=== PATIENT | female | born 1945 | race Caucasian/White ===

== ENCOUNTER → 2017-10-02 | Day surgery (SDC) | payer MEDICARE ==
[~2017-10-02] VITALS: Ht 167.6 cm; Wt 97.3 kg
[2017-10-02] VITALS (22 sets, daily range): BP systolic 88–153; BP diastolic 48–85; PULSE 68–100; TEMP 98.2–99.3
[~2017-10-02] MED LIST: BACTRIM DS 8001 TAB PO; FOLIC ACID; GLUCOSE TEST ST1 DEV MC; IBUPROFEN800 MG PO; IRON; LEVEMIR SQ; LEVEMIR100 U/ML SQ; NORCO 325 MG-51 TAB PO; TYLENOL 500MG500 MG PO; VITAMIN C1 TAB PO
== END ==
LOC: SDCO 05:51 → EDSTATUS 08:00 → SDCO 08:00 → COL.RAD 08:00
DX: C50.211 Malignant neoplasm of upper-inner quadrant of right female breast (principal); C78.7 Secondary malignant neoplasm of liver and intrahepatic bile duct; Z17.1 Estrogen receptor negative status [ER-]; E11.9 Type 2 diabetes mellitus without complications; Z78.0 Asymptomatic menopausal state; Z80.8 Family history of malignant neoplasm of other organs or systems; Z80.0 Family history of malignant neoplasm of digestive organs; Z80.49 Family history of malignant neoplasm of other genital organs; Z96.653 Presence of artificial knee joint, bilateral
CPT/HCPCS: C1788; J0690; J1644; J2405; J2704; J3010; J7030

== ENCOUNTER 2018-01-09 08:28 | Day surgery (SDC) | payer MEDICARE, OTHER ==
[2018-01-09] VITALS (7 sets, daily range): BP systolic 92–131; BP diastolic 44–67; PULSE 56–78; TEMP 97.1–98
[~2018-01-09] VITALS: Ht 167.6 cm; Wt 101.0 kg
[2018-01-09] MEDS ORDERED: ZESTRIL30 MG PO (08:51)
[2018-01-09] MEDS ORDERED: LEVEMIR FLEX100 U/ML SQ (08:52)
[2018-01-09] MEDS ORDERED: NORCO 325 MG-51 TAB PO (12:17)
[2018-01-09 14:15] LABS: HEMATOCRIT 40.7 % (37.0-47.0); HEMOGLOBIN 12.8 g/dl (12.5-16.0); MEAN CELL VOLUME 96 fl (80.0-100.0); MEAN CORPUSCULAR HEMOGLOBIN 30 pg (27.0-31.0); MEAN CORPUSCULAR HGB CONC 31 g/dl (33.0-37.0); MEAN PLATELET VOLUME 11.7 fl (7.4-10.4); PLATELET COUNT 336 K/mm3 (130-400); RED BLOOD COUNT 4.26 M/mm3 (4.10-5.30); REDCELL DISTRIBUTION WIDTH-CV 17.3 % (11.5-14.5)
[2018-01-09 14:24] LABS: BILIRUBIN,TOTAL 0.7 mg/dL (0.0-1.0); CALCIUM 9.3 mg/dL (8.4-10.2); CREATININE, serum 0.78 mg/dL (0.52-1.25); POTASSIUM 4.2 mmol/L (3.4-5.0); TOTAL PROTEIN 8.1 gm/dL (6.4-8.2)
[2018-01-09 14:41] LABS: BAND 2 % (0-10); LYMPHOCYTE 32 % (20.0-51.0); NEUTROPHILS 65 % (42.0-75.2)
[2018-01-09 14:42] LABS: PLATELET ESTIMATE NORMAL (NORMAL)
== END 2018-01-09 14:25 | disposition home or self-care (01) ==
LOC: SDCO 08:28
PROVIDERS: Internal Medicine
DX: C50.911 Malignant neoplasm of unspecified site of right female breast (principal); C78.7 Secondary malignant neoplasm of liver and intrahepatic bile duct; M13.849 Other specified arthritis, unspecified hand; I10 Essential (primary) hypertension; E11.42 Type 2 diabetes mellitus with diabetic polyneuropathy; Z96.653 Presence of artificial knee joint, bilateral; Z79.4 Long term (current) use of insulin; Z88.0 Allergy status to penicillin; Z87.891 Personal history of nicotine dependence; Z85.828 Personal history of other malignant neoplasm of skin; Z82.49 Family history of ischemic heart disease and other diseases of the circulatory system
CPT/HCPCS: C1788; J0690; J1644; J2704; J3010; J7030

== ENCOUNTER → 2018-02-15 | Outpatient (CLI) | payer MEDICARE, OTHER ==
[~2018-02-15] MED LIST changes: +LEVEMIR FLEX100 U/ML SQ; +ZESTRIL30 MG PO
== END ==
LOC: ZCOL.LAB 16:03
DX: T80.212A Local infection due to central venous catheter, initial encounter (principal)

== ENCOUNTER 2018-02-19 14:10 | Inpatient (IN) | payer MEDICARE, OTHER ==
[~2018-02-19] VITALS: Ht 165.1 cm; Wt 102.9 kg
[2018-02-19 15:05] LABS: MEAN CELL VOLUME 89 fl (80.0-100.0); MEAN CORPUSCULAR HGB CONC 34 g/dl (33.0-37.0); PLATELET COUNT 419 K/mm3 (130-400); RED BLOOD COUNT 3.91 M/mm3 (4.10-5.30)
[2018-02-19 15:09] LABS: HEMATOCRIT 34.9 % (37.0-47.0); HEMOGLOBIN 11.9 g/dl (12.5-16.0); MEAN CORPUSCULAR HEMOGLOBIN 30 pg (27.0-31.0)
[2018-02-19 15:27] LABS: ALBUMIN 3.5 gm/dL (3.5-5.0); BILIRUBIN,TOTAL 1.1 mg/dL (0.0-1.0); CALCIUM 9.4 mg/dL (8.4-10.2); CREATININE, serum 0.89 mg/dL (0.52-1.25); LYMPHOCYTE 7 % (20.0-51.0); NEUTROPHILS 81 % (42.0-75.2); PLATELET ESTIMATE NORMAL (NORMAL); POTASSIUM 3.4 mmol/L (3.4-5.0); TOTAL PROTEIN 8.4 gm/dL (6.4-8.2)
[2018-02-19 15:28] LABS: ANISOCYTOSIS 2+; MICROCYTOSIS 1+
[2018-02-19 15:29] LABS: POLYCHROMASIA 1+
[2018-02-19 17:02] VITALS: BP 139/68; PULSE 95; TEMP 102.5
[2018-02-19 20:49] VITALS: BP 99/46; PULSE 82; TEMP 97.7
[2018-02-20] VITALS (7 sets, daily range): BP systolic 100–138; BP diastolic 41–73; PULSE 68–86; TEMP 98.1–99.3
[2018-02-20 07:01] LABS: BASO # 0.1 (0.0-0.2); BASO % 0.5 % (0.0-2.0); BILIRUBIN,TOTAL 0.8 mg/dL (0.0-1.0); CALCIUM 8.6 mg/dL (8.4-10.2); CREATININE, serum 0.85 mg/dL (0.52-1.25); EOS % 0.1 % (0-4.0); GRAN # 19.5 (1.4-6.5); GRAN % 74.4 % (42.2-75.2); LYMPH # 2.3 (1.2-3.4); LYMPH % 8.7 % (20.0-51.0); MAGNESIUM 2.1 mg/dL (1.6-2.3); MEAN CELL VOLUME 93 fl (80.0-100.0); MEAN CORPUSCULAR HGB CONC 33 g/dl (33.0-37.0); MEAN PLATELET VOLUME 11.2 fl (7.4-10.4); MONO # 3.2 (0.1-0.6); MONO % 12.3 % (1.7-9.3); PLATELET COUNT 371 K/mm3 (130-400); POTASSIUM 3.3 mmol/L (3.4-5.0); RED BLOOD COUNT 3.54 M/mm3 (4.10-5.30); REDCELL DISTRIBUTION WIDTH-CV 17.1 % (11.5-14.5); TOTAL PROTEIN 7.1 gm/dL (6.4-8.2)
[2018-02-20 07:16] LABS: HEMATOCRIT 32.9 % (37.0-47.0); HEMOGLOBIN 10.7 g/dl (12.5-16.0); MEAN CORPUSCULAR HEMOGLOBIN 30 pg (27.0-31.0)
[2018-02-21 03:35] LABS: MEAN CELL VOLUME 91 fl (80.0-100.0); MEAN CORPUSCULAR HGB CONC 33 g/dl (33.0-37.0); MEAN PLATELET VOLUME 10.9 fl (7.4-10.4); PLATELET COUNT 322 K/mm3 (130-400); RED BLOOD COUNT 3.64 M/mm3 (4.10-5.30)
[2018-02-21 03:38] LABS: HEMATOCRIT 33.1 % (37.0-47.0); HEMOGLOBIN 10.8 g/dl (12.5-16.0); MEAN CORPUSCULAR HEMOGLOBIN 30 pg (27.0-31.0)
[2018-02-21 03:44] VITALS: BP 121/62; PULSE 80; TEMP 98.8
[2018-02-21 03:48] LABS: CALCIUM 8.8 mg/dL (8.4-10.2); CREATININE, serum 0.72 mg/dL (0.52-1.25); POTASSIUM 4.3 mmol/L (3.4-5.0)
[2018-02-21 03:49] LABS: ANISOCYTOSIS 1+; BAND 11 % (0-10); LYMPHOCYTE 7 % (20.0-51.0); MAGNESIUM 2.3 mg/dL (1.6-2.3); METAMYELOCYTE 3 % (0-0); NEUTROPHILS 64 % (42.0-75.2); PLATELET ESTIMATE NORMAL (NORMAL)
[2018-02-21 07:35] VITALS: BP 113/61; PULSE 78; TEMP 98.3
[2018-02-21 12:31] VITALS: BP 125/64; PULSE 72; TEMP 97.7
[2018-02-21 16:35] VITALS: BP 115/48; PULSE 77; TEMP 98.9
[2018-02-21 20:39] VITALS: BP 122/56; PULSE 81; TEMP 99.7
[2018-02-22] VITALS (8 sets, daily range): BP systolic 114–140; BP diastolic 53–73; PULSE 67–92; TEMP 97.7–98.6
[2018-02-22 07:03] LABS: MEAN CELL VOLUME 94 fl (80.0-100.0); MEAN CORPUSCULAR HGB CONC 32 g/dl (33.0-37.0); MEAN PLATELET VOLUME 11.5 fl (7.4-10.4); PLATELET COUNT 297 K/mm3 (130-400); RED BLOOD COUNT 3.55 M/mm3 (4.10-5.30); REDCELL DISTRIBUTION WIDTH-CV 17.2 % (11.5-14.5)
[2018-02-22 07:12] LABS: CREATININE, serum 0.61 mg/dL (0.52-1.25); POTASSIUM 3.6 mmol/L (3.4-5.0)
[2018-02-22 07:13] LABS: HEMATOCRIT 33.5 % (37.0-47.0); HEMOGLOBIN 10.6 g/dl (12.5-16.0); MEAN CORPUSCULAR HEMOGLOBIN 30 pg (27.0-31.0)
[2018-02-22 08:59] LABS: ANISOCYTOSIS 1+; BAND 5 % (0-10); LYMPHOCYTE 16 % (20.0-51.0); NEUTROPHILS 77 % (42.0-75.2)
[2018-02-22 09:00] LABS: PLATELET ESTIMATE NORMAL (NORMAL)
[2018-02-23 03:51] VITALS: BP 132/57; PULSE 70; TEMP 98
[2018-02-23 07:18] LABS: MEAN CELL VOLUME 92 fl (80.0-100.0); MEAN CORPUSCULAR HGB CONC 33 g/dl (33.0-37.0); MEAN PLATELET VOLUME 11.4 fl (7.4-10.4); PLATELET COUNT 284 K/mm3 (130-400); RED BLOOD COUNT 3.74 M/mm3 (4.10-5.30); REDCELL DISTRIBUTION WIDTH-CV 17.4 % (11.5-14.5)
[2018-02-23 07:22] LABS: HEMATOCRIT 34.5 % (37.0-47.0); HEMOGLOBIN 11.2 g/dl (12.5-16.0); MEAN CORPUSCULAR HEMOGLOBIN 30 pg (27.0-31.0)
[2018-02-23 07:23] LABS: ALBUMIN 3.1 gm/dL (3.5-5.0); BILIRUBIN,TOTAL 0.7 mg/dL (0.0-1.0); CALCIUM 9.4 mg/dL (8.4-10.2); CREATININE, serum 0.67 mg/dL (0.52-1.25); POTASSIUM 3.4 mmol/L (3.4-5.0); TOTAL PROTEIN 7.6 gm/dL (6.4-8.2)
[2018-02-23 09:19] LABS: ANISOCYTOSIS 1+; BAND 6 % (0-10); HYPOCHROMIA 1+; LYMPHOCYTE 20 % (20.0-51.0); NEUTROPHILS 65 % (42.0-75.2); PLATELET ESTIMATE NORMAL (NORMAL)
[2018-02-23 09:20] LABS: STOMATOCYTE 1+
[2018-02-23 09:53] VITALS: BP 143/56; PULSE 74; TEMP 97.8
[2018-02-23 12:22] VITALS: BP 148/71; PULSE 78; TEMP 97.7
[2018-02-23 15:52] VITALS: BP 151/78; PULSE 84; TEMP 97.3
[2018-02-23 20:06] VITALS: BP 119/58; PULSE 94
[2018-02-24] VITALS (7 sets, daily range): BP systolic 100–135; BP diastolic 48–68; PULSE 77–94; TEMP 97.1–98.9
[2018-02-24 07:45] LABS: MEAN CELL VOLUME 92 fl (80.0-100.0); MEAN CORPUSCULAR HGB CONC 33 g/dl (33.0-37.0); MEAN PLATELET VOLUME 11.4 fl (7.4-10.4); PLATELET COUNT 306 K/mm3 (130-400); RED BLOOD COUNT 3.76 M/mm3 (4.10-5.30); REDCELL DISTRIBUTION WIDTH-CV 17.9 % (11.5-14.5)
[2018-02-24 07:51] LABS: CALCIUM 9.4 mg/dL (8.4-10.2); CREATININE, serum 0.66 mg/dL (0.52-1.25); POTASSIUM 3.9 mmol/L (3.4-5.0)
[2018-02-24 08:07] LABS: HEMATOCRIT 34.5 % (37.0-47.0); HEMOGLOBIN 11.2 g/dl (12.5-16.0); MEAN CORPUSCULAR HEMOGLOBIN 30 pg (27.0-31.0)
[2018-02-24 08:57] LABS: ANISOCYTOSIS 1+; BAND 10 % (0-10); HYPOCHROMIA 1+; LYMPHOCYTE 13 % (20.0-51.0); METAMYELOCYTE 1 % (0-0); NEUTROPHILS 68 % (42.0-75.2); PLATELET ESTIMATE NORMAL (NORMAL)
[2018-02-25 03:56] VITALS: BP 106/69; PULSE 85; TEMP 99.1
[2018-02-25 06:58] LABS: MEAN CELL VOLUME 94 fl (80.0-100.0); MEAN CORPUSCULAR HGB CONC 33 g/dl (33.0-37.0); MEAN PLATELET VOLUME 11.5 fl (7.4-10.4); PLATELET COUNT 303 K/mm3 (130-400)
[2018-02-25 06:59] LABS: HEMATOCRIT 32.9 % (37.0-47.0); HEMOGLOBIN 10.7 g/dl (12.5-16.0); MEAN CORPUSCULAR HEMOGLOBIN 31 pg (27.0-31.0)
[2018-02-25 07:10] LABS: CALCIUM 9.4 mg/dL (8.4-10.2); CREATININE, serum 0.62 mg/dL (0.52-1.25); POTASSIUM 3.3 mmol/L (3.4-5.0)
[2018-02-25 07:25] VITALS: BP 120/58; PULSE 87; TEMP 98.6
[2018-02-25 12:05] VITALS: BP 123/49; PULSE 89; TEMP 98.1
[2018-02-25 15:45] VITALS: BP 138/68; PULSE 92; TEMP 99.2
[2018-02-25 16:42] LABS: COLLECTION METHOD CLEAN CATCH
[2018-02-25 16:47] LABS: PH 6 (5-8); URINE APPEARANCE Clear; URINE BACTERIA None Seen /hpf; URINE BILIRUBIN Negative (NEGATIVE); URINE BLOOD Negative (NEGATIVE); URINE COLOR Yellow; URINE GLUCOSE 1+ (NEGATIVE); URINE KETONE Negative (NEGATIVE); URINE LEUKOCYTE ESTERASE Negative (NEGATIVE); URINE NITRATE Negative (NEGATIVE); URINE PROTEIN(semi-quant) 1+ (NEGATIVE); URINE RBC 0-2 /hpf; URINE UROBILINOGEN Negative (NEGATIVE); URINE WBC 0-2 /hpf
[2018-02-25 19:47] VITALS: BP 126/103; PULSE 113; TEMP 99.3
[2018-02-25 23:38] VITALS: BP 136/60; PULSE 95; TEMP 98.5
[2018-02-26] VITALS (8 sets, daily range): BP systolic 108–134; BP diastolic 45–77; PULSE 87–105; TEMP 97.5–102.1
[2018-02-26 06:09] LABS: BASO # 0.1 (0.0-0.2); BASO % 0.3 % (0.0-2.0); GRAN # 31.1 (1.4-6.5); GRAN % 79.2 % (42.2-75.2); LYMPH # 2.2 (1.2-3.4); LYMPH % 5.6 % (20.0-51.0); MEAN CELL VOLUME 90 fl (80.0-100.0); MEAN CORPUSCULAR HGB CONC 33 g/dl (33.0-37.0); MEAN PLATELET VOLUME 11.3 fl (7.4-10.4); MONO # 4.3 (0.1-0.6); MONO % 10.9 % (1.7-9.3); PLATELET COUNT 302 K/mm3 (130-400); RED BLOOD COUNT 3.62 M/mm3 (4.10-5.30); REDCELL DISTRIBUTION WIDTH-CV 17.9 % (11.5-14.5)
[2018-02-26 06:13] LABS: CALCIUM 9.5 mg/dL (8.4-10.2); CREATININE, serum 0.65 mg/dL (0.52-1.25); POTASSIUM 3.4 mmol/L (3.4-5.0)
[2018-02-26 06:27] LABS: HEMATOCRIT 32.5 % (37.0-47.0); HEMOGLOBIN 10.8 g/dl (12.5-16.0); MEAN CORPUSCULAR HEMOGLOBIN 30 pg (27.0-31.0)
[2018-02-26 09:13] LABS: BAND 1 % (0-10); LYMPHOCYTE 5 % (20.0-51.0); NEUTROPHILS 89 % (42.0-75.2)
[2018-02-26 09:14] LABS: ANISOCYTOSIS 1+; HYPOCHROMIA 1+; PLATELET ESTIMATE NORMAL (NORMAL)
[2018-02-27 04:04] VITALS: BP 117/61; PULSE 81
[2018-02-27 06:06] LABS: MEAN CELL VOLUME 93 fl (80.0-100.0); MEAN CORPUSCULAR HGB CONC 32 g/dl (33.0-37.0); MEAN PLATELET VOLUME 11.2 fl (7.4-10.4); PLATELET COUNT 299 K/mm3 (130-400); REDCELL DISTRIBUTION WIDTH-CV 18.5 % (11.5-14.5)
[2018-02-27 06:09] LABS: HEMATOCRIT 32.7 % (37.0-47.0); HEMOGLOBIN 10.5 g/dl (12.5-16.0); MEAN CORPUSCULAR HEMOGLOBIN 30 pg (27.0-31.0)
[2018-02-27 06:20] LABS: BILIRUBIN,TOTAL 3.5 mg/dL (0.0-1.0); CALCIUM 9.3 mg/dL (8.4-10.2); CREATININE, serum 0.76 mg/dL (0.52-1.25); POTASSIUM 3.6 mmol/L (3.4-5.0); TOTAL PROTEIN 7.6 gm/dL (6.4-8.2)
[2018-02-27 06:51] LABS: BAND 4 % (0-10); LYMPHOCYTE 9 % (20.0-51.0); NEUTROPHILS 83 % (42.0-75.2); PLATELET ESTIMATE NORMAL (NORMAL)
[2018-02-27 08:27] VITALS: BP 136/61; PULSE 90; TEMP 98.3
[2018-02-27 11:42] VITALS: BP 118/54; PULSE 89; TEMP 98.9
[2018-02-27 15:49] VITALS: BP 135/61; PULSE 87; TEMP 97.8
[2018-02-27 20:03] VITALS: BP 121/59; PULSE 91; TEMP 98.8
[2018-02-27 23:46] VITALS: BP 122/60; PULSE 86; TEMP 97.8
[2018-02-28] VITALS (16 sets, daily range): BP systolic 100–153; BP diastolic 53–88; PULSE 71–84; TEMP 97.7–98.7
[2018-02-28 06:23] LABS: MEAN CELL VOLUME 92 fl (80.0-100.0); MEAN CORPUSCULAR HGB CONC 32 g/dl (33.0-37.0); MEAN PLATELET VOLUME 11.5 fl (7.4-10.4); PLATELET COUNT 300 K/mm3 (130-400); RED BLOOD COUNT 3.22 M/mm3 (4.10-5.30); REDCELL DISTRIBUTION WIDTH-CV 18.3 % (11.5-14.5)
[2018-02-28 06:29] LABS: HEMATOCRIT 29.6 % (37.0-47.0); HEMOGLOBIN 9.6 g/dl (12.5-16.0); MEAN CORPUSCULAR HEMOGLOBIN 30 pg (27.0-31.0)
[2018-02-28 06:33] LABS: CALCIUM 9.1 mg/dL (8.4-10.2); CREATININE, serum 0.73 mg/dL (0.52-1.25); POTASSIUM 3.5 mmol/L (3.4-5.0)
[2018-02-28 07:04] LABS: BAND 4 % (0-10); LYMPHOCYTE 11 % (20.0-51.0); METAMYELOCYTE 2 % (0-0); NEUTROPHILS 77 % (42.0-75.2); PLATELET ESTIMATE NORMAL (NORMAL)
[2018-02-28 07:52] LABS: POLYCHROMASIA 1+
[2018-02-28 08:38] LABS: TARGET CELLS 1+
[2018-02-28 08:39] LABS: ANISOCYTOSIS 1+
== END 2018-02-28 15:50 | disposition short-term general hospital (02) | DRG 314 ==
LOC: COL.ER 14:10 → MEDICAL 15:36
PROVIDERS: Family Medicine; Internal Medicine; Internal Medicine Infectious Disease; Nurse Practitioner Family; Physician Assistant
DX: T80.211A Bloodstream infection due to central venous catheter, initial encounter (principal); A41.01 Sepsis due to Methicillin susceptible Staphylococcus aureus; I33.0 Acute and subacute infective endocarditis; E87.1 Hypo-osmolality and hyponatremia; C78.7 Secondary malignant neoplasm of liver and intrahepatic bile duct; L03.313 Cellulitis of chest wall; I12.9 Hypertensive chronic kidney disease with stage 1 through stage 4 chronic kidney disease, or unspecified chronic kidney disease; N18.2 Chronic kidney disease, stage 2 (mild); C50.811 Malignant neoplasm of overlapping sites of right female breast; E11.22 Type 2 diabetes mellitus with diabetic chronic kidney disease; E66.01 Morbid (severe) obesity due to excess calories; Z85.828 Personal history of other malignant neoplasm of skin; B95.61 Methicillin susceptible Staphylococcus aureus infection as the cause of diseases classified elsewhere; S00.03XA Contusion of scalp, initial encounter; W18.30XA Fall on same level, unspecified, initial encounter; Y92.230 Patient room in hospital as the place of occurrence of the external cause
CPT/HCPCS: 99222-AI; 99232-AI; 99233-AI; 99239; G9654; J0690; J0692; J1650; J1815; J2185; J2250; J2704; J3370; J7030; J7040; J7050

== ENCOUNTER → 2018-03-06 | Outpatient (REF) ==
[2018-03-06 09:54] LABS: MEAN CELL VOLUME 91 fl (80.0-100.0); MEAN CORPUSCULAR HGB CONC 33 g/dl (33.0-37.0); MEAN PLATELET VOLUME 11.6 fl (7.4-10.4); PLATELET COUNT 284 K/mm3 (130-400); RED BLOOD COUNT 3.59 M/mm3 (4.10-5.30); REDCELL DISTRIBUTION WIDTH-CV 20.2 % (11.5-14.5)
[2018-03-06 09:55] LABS: HEMATOCRIT 32.5 % (37.0-47.0); HEMOGLOBIN 10.6 g/dl (12.5-16.0); MEAN CORPUSCULAR HEMOGLOBIN 30 pg (27.0-31.0)
[2018-03-06 10:06] LABS: ANION GAP 6 mmol/L (7-16); BLOOD UREA NITROGEN 11 mg/dL (7-17); CALCIUM 9.5 mg/dL (8.4-10.2); CARBON DIOXIDE 32 mmol/L (22-30); CHLORIDE 101 mmol/L (98-107); GLUCOSE 68 mg/dL (74-106); POTASSIUM 3.4 mmol/L (3.4-5.0); SODIUM 139 mmol/L (137-145)
[2018-03-06 10:17] LABS: C-REACTIVE PROTEIN 14.1 mg/dL (0.0-0.9); CREATINE KINASE < 20 U/L (30-135)
[2018-03-06 11:20] LABS: BAND 6 % (0-10); LYMPHOCYTE 16 % (20.0-51.0); NEUTROPHILS 72 % (42.0-75.2)
[2018-03-06 11:21] LABS: HYPOCHROMIA 1+; PLATELET ESTIMATE NORMAL (NORMAL)
== END ==
LOC: ZLAB.STJ 09:42
PROVIDERS: Family Medicine
DX: I05.8 Other rheumatic mitral valve diseases (principal); T80.219S Unspecified infection due to central venous catheter, sequela; I33.0 Acute and subacute infective endocarditis; A49.01 Methicillin susceptible Staphylococcus aureus infection, unspecified site

== ENCOUNTER → 2018-03-12 | Outpatient (REF) ==
[2018-03-12 09:12] LABS: HEMOGLOBIN 10.5 g/dl (12.5-16.0); MEAN CELL VOLUME 92 fl (80.0-100.0); MEAN CORPUSCULAR HEMOGLOBIN 30 pg (27.0-31.0); MEAN CORPUSCULAR HGB CONC 33 g/dl (33.0-37.0); MEAN PLATELET VOLUME 11.8 fl (7.4-10.4); PLATELET COUNT 253 K/mm3 (130-400); RED BLOOD COUNT 3.45 M/mm3 (4.10-5.30); REDCELL DISTRIBUTION WIDTH-CV 21.4 % (11.5-14.5)
[2018-03-12 09:13] LABS: HEMATOCRIT 31.8 % (37.0-47.0)
[2018-03-12 09:27] LABS: ALANINE AMINOTRANSFERASE 40 U/L (9-52); ALBUMIN 2.7 gm/dL (3.5-5.0); ANION GAP 8 mmol/L (7-16); AST,SGOT 280 U/L (15-37); BILIRUBIN,TOTAL 5.8 mg/dL (0.0-1.0); BLOOD UREA NITROGEN 8 mg/dL (7-17); CALCIUM 9.2 mg/dL (8.4-10.2); CARBON DIOXIDE 31 mmol/L (22-30); CHLORIDE 100 mmol/L (98-107); CREATININE, serum 0.54 mg/dL (0.52-1.25); GLUCOSE 48 mg/dL (74-106); SODIUM 138 mmol/L (137-145)
[2018-03-12 09:31] LABS: ALKALINE PHOSPHATASE 1364 U/L (50-136); CREATINE KINASE < 20 U/L (30-135)
[2018-03-12 11:01] LABS: ANISOCYTOSIS 3+; LYMPHOCYTE 16 % (20.0-51.0); NEUTROPHILS 82 % (42.0-75.2); PLATELET ESTIMATE NORMAL (NORMAL)
[2018-03-12 11:02] LABS: TARGET CELLS 1+
== END ==
LOC: ZLAB.STJ 09:06
PROVIDERS: Family Medicine
DX: R78.71 Abnormal lead level in blood (principal)

== ENCOUNTER → 2018-03-19 | Outpatient (REF) ==
[2018-03-19 14:12] LABS: BASO % 0.2 % (0.0-2.0); EOS % 0.3 % (0-4.0); GRAN # 10.4 (1.4-6.5); GRAN % 73.1 % (42.2-75.2); HEMOGLOBIN 10.8 g/dl (12.5-16.0); LYMPH # 1.9 (1.2-3.4); LYMPH % 13.1 % (20.0-51.0); MEAN CELL VOLUME 91 fl (80.0-100.0); MEAN CORPUSCULAR HEMOGLOBIN 29 pg (27.0-31.0); MEAN CORPUSCULAR HGB CONC 32 g/dl (33.0-37.0); MEAN PLATELET VOLUME 11.6 fl (7.4-10.4); MONO # 1.6 (0.1-0.6); MONO % 11.2 % (1.7-9.3); PLATELET COUNT 195 K/mm3 (130-400); RED BLOOD COUNT 3.68 M/mm3 (4.10-5.30); REDCELL DISTRIBUTION WIDTH-CV 21.6 % (11.5-14.5)
[2018-03-19 14:13] LABS: HEMATOCRIT 33.3 % (37.0-47.0)
== END ==
LOC: ZLAB.STJ 14:05
PROVIDERS: Internal Medicine Infectious Disease
DX: R78.81 Bacteremia (principal)

== ENCOUNTER → 2018-03-20 | Outpatient (REF) ==
[2018-03-20 10:10] LABS: ALBUMIN 2.8 gm/dL (3.5-5.0); CALCIUM 9.9 mg/dL (8.4-10.2); CREATININE, serum 0.59 mg/dL (0.52-1.25); POTASSIUM 4.4 mmol/L (3.4-5.0); TOTAL PROTEIN 8.6 gm/dL (6.4-8.2)
[2018-03-20 10:28] LABS: C-REACTIVE PROTEIN 17.1 mg/dL (0.0-0.9)
[2018-03-20 13:40] LABS: COLLECTION METHOD CLEAN CATCH
[2018-03-20 13:52] LABS: MUCOUS Present /lpf; PH 5 (5-8); URINE APPEARANCE Turbid; URINE BACTERIA None Seen /hpf; URINE BILIRUBIN Positive (NEGATIVE); URINE BLOOD Negative (NEGATIVE); URINE COLOR Amber; URINE GLUCOSE Negative (NEGATIVE); URINE KETONE Negative (NEGATIVE); URINE LEUKOCYTE ESTERASE Trace (NEGATIVE); URINE NITRATE Negative (NEGATIVE); URINE PROTEIN(semi-quant) 1+ (NEGATIVE); URINE RBC 0-2 /hpf; URINE UROBILINOGEN >=4.0 mg/dL (NEGATIVE)
[2018-03-22 13:45] LABS: CA 15-3 1712 U/mL (<30)
[2018-03-22 22:40] LABS: CANCER ANTIGEN CA 27.29 1788 U/mL (<=38.0)
== END ==
LOC: ZLAB.STJ 09:29
PROVIDERS: Internal Medicine
DX: C50.211 Malignant neoplasm of upper-inner quadrant of right female breast (principal); J98.11 Atelectasis